=== PATIENT | male | born 1950 | race African-American/Black ===

== ENCOUNTER 2016-08-03 22:09 | Emergency (ER) | payer OTHER ==
[~2016-08-03] VITALS: Ht 185.4 cm; Wt 107.9 kg
--- OUTSIDE RECORDS SUMMARY | 2016-08-03 22:13 | XMS REPORT | Referral Summary ---
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 Name Role Phone [facility] Primary Care Physician Unavailable Encounter [facility] [id number] Date(s): 01/20/16 - 01/20/16 [facility] [address], [place] [address] Discharge Disposition: 01-Home or Self Care Attending Physician: Johnnie Ga MD Admitting Physician: Johnnie Ga MD Vital Signs No data available for this section Problem List Condition Effective Dates Status Health Status Informant Cardiac Active disorder(Confirmed)1 Hypertension(Confirm Active patient ed) Knowledge Active deficit(Confirmed)2 Tissue perfusion Active alteration(Confirmed )3 1Problem added automatically by system based on initiation of Cardiac Output/ Ineffective Cardiac Perfusion Plan of Care 2Problem added automatically by system based on initiation of Knowledge Deficit Plan of Care 3Problem added automatically by system based on initiation of Tissue Perfusion Cerebral Plan of Care Allergies, Adverse Reactions, Alerts No Known Allergies Medications Aldactone 25 mg oral tablet 12.5 mg 0.5 tabs, Oral, Daily, # 15 tabs, 1 Refill(s), Pharmacy: [facility] #[id number], 0.5 tabs Oral Daily,x30 days Start Date: 11/03/15 Stop Date: 01/02/16 Status: Ordered amiodarone 400 mg oral tablet See Instructions, 400 mg bid times one week then decrease to 400 mg daily times one week then 200 mg po daily therafter until seen by Dr. Ga, # 30 caps, 3 Refill(s), please despense for one month Start Date: 11/20/15 Status: Ordered aspirin 81 mg, Oral, Daily, 0 Refill(s) Start Date: 10/12/15 Status: Ordered atorvastatin 40 mg oral tablet See Instructions, TAKE ONE TABLET BY MOUTH DAILY, # 30 tabs, 2 Refill(s), Pharmacy: [facility] #[id number], TAKE ONE TABLET BY MOUTH DAILY Start Date: 12/10/15 Status: Ordered Eliquis 5 mg oral tablet 5 mg 1 tabs, Oral, BID, # 60 tabs, 3 Refill(s), Pharmacy: [facility] # [id number], 1 tabs Oral BID Start Date: 10/17/15 Status: Ordered furosemide 40 mg oral tablet 40 mg 1 tabs, Oral, Daily, # 30 tabs, 1 Refill(s), Pharmacy: [facility] # [id number], 1 tabs Oral Daily Start Date: 11/03/15 Status: Ordered lisinopril 5 mg oral tablet 5 mg 1 tabs, Oral, Daily, # 30 tabs, 3 Refill(s), Pharmacy: [facility] # [id number], 1 tabs Oral Daily Start Date: 10/17/15 Status: Ordered Nicoderm C-Q 14 mg/24 hr transdermal film, extended release 1 patches, Topical, Daily, # 30 patches, 1 Refill(s), Pharmacy: [facility] #[id number] Start Date: 11/13/15 Stop Date: 02/26/16 Status: Ordered omeprazole 20 mg oral delayed release capsule 20 mg 1 caps, Oral, Daily, # 30 caps, 1 Refill(s), Pharmacy: [facility] # [id number], 1 caps Oral Daily Start Date: 11/03/15 Status: Ordered One-A-Day Men 50 Plus 1 tabs, Oral, Daily, 0 Refill(s) Start Date: 10/12/15 Status: Ordered Toprol-XL 50 mg oral tablet, extended release 150 mg 3 tabs, Oral, Daily, # 90 tabs, 3 Refill(s), Pharmacy: [facility] # [id number] Start Date: 10/17/15 Status: Ordered Results No data available for this section Immunizations No data available for this section Procedures Procedure Date Related Diagnosis Body Site Cardioversion with Transesophageal 11/20/15 Echocardiogram1 Catheterization Left Heart with Coronary 10/15/15 Angiography (Right, Wrist)2 Catheterization Right Heart (Right, Upper 10/15/15 Arm)3 Stabbing 1/1/88 Knee arthroplasty 05/09/82 1auto-populated from documented surgical case 2auto-populated from documented surgical case 3auto-populated from documented surgical case Social History Social History Type Response Smoking Status Current every day smoker; Type: Cigarettes; Tobacco use per day: Less than Pack1 13 cigs daily Assessment and Plan No data available for this section
--- OUTSIDE RECORDS SUMMARY | 2016-08-03 22:13 | XMS REPORT | Referral Summary ---
Author Author [facility] Organization [facility] Address Unknown Phone Unavailable Care Team Providers Care Dealer Relationship Manager Name Role Phone [facility] Primary Care Physician Unavailable Encounter [facility] [id number] Date(s): 10/11/15 - 10/17/15 [facility] [address] [place] [address] [phone] Discharge Diagnosis: Dyspnea Discharge Diagnosis: Leg edema Discharge Diagnosis: New onset a-fib Discharge Disposition: 01-Home or Self Care Attending Physician: Lindsay Rice DO Admitting Physician: Hannah Morrison DO Vital Signs Most recent to 1 oldest [Reference Range]: Temperature Oral 36.5 degC [35.8-37.3 degC] (10/17/15 9:42 AM) Temperature Temporal 36.6 degC Artery [36.3-37.8 (10/13/15 3:45 PM) degC] Peripheral Pulse 90 bpm Rate [60-100 bpm] (10/17/15 9:42 AM) Heart Rate Monitored 86 bpm [60-100 bpm] (10/17/15 8:36 AM) Respiratory Rate 16 br/min [14-20 br/min] (10/17/15 9:42 AM) Blood Pressure 135/92 mmHg [90-140/60-90 mmHg] (10/17/15 9:42 AM) Mean Arterial 119 mmHg Pressure, Cuff (10/15/15 8:43 AM) Pulse Rate [60-100 93 bpm bpm] (10/14/15 9:02 PM) SpO2 95 % (10/17/15 9:42 AM) Remote Telemetry Ongoing (10/17/15 10:12 AM) Problem List Condition Effective Dates Status Health [...] Adverse Reactions, Alerts No Known Allergies Medications aspirin 81 mg, Oral, Daily, 0 Refill(s) Start Date: 10/12/15 Status: Ordered Eliquis 5 mg oral tablet 5 mg 1 tabs, Oral, BID, # 60 tabs, 3 Refill(s), Pharmacy: [facility] # [id number], 1 tabs Oral BID Start Date: 10/17/15 Status: Ordered Lasix 20 mg oral tablet 20 mg 1 tabs, Oral, Daily, # 30 tabs, 1 Refill(s), Pharmacy: [facility] # [id number], 1 tabs Oral Daily Start Date: 10/17/15 Status: Ordered Lipitor 40 mg oral tablet 40 mg 1 tabs, Oral, Daily, # 30 tabs, 0 Refill(s), Pharmacy: [facility] # [id number], 1 tabs Oral Daily Start Date: 10/17/15 Status: Ordered lisinopril 5 mg oral tablet 5 mg 1 tabs, Oral, Daily, # 30 tabs, 3 Refill(s), Pharmacy: [facility] # [id number], 1 tabs Oral Daily Start Date: 10/17/15 Status: Ordered One-A-Day Men 50 Plus 1 tabs, Oral, Daily, 0 Refill(s) Start Date: 10/12/15 Status: Ordered Toprol-XL 50 mg oral tablet, extended release 150 mg 3 tabs, Oral, Daily, # 90 tabs, 3 Refill(s), Pharmacy: [facility] # [id number] Start Date: 10/17/15 Status: Ordered Results Hematology Most recent to 1 oldest [Reference Range]: WBC [4.8-10.8 7.0 10*3/uL 10*3/uL] (10/17/15 5:12 AM) RBC [4.60-6.20] 5.23 (10/17/15 5:12 AM) Hgb [14.0-18.0 15.4 gm/dL gm/dL] (10/17/15 5:12 AM) Hct [42.0-52.0 %] 45.6 % (10/17/15 5:12 AM) MCV [82.0-99.0 fL] 87.2 fL (10/17/15 5:12 AM) MCH [27.0-32.0 pg] 29.4 pg (10/17/15 5:12 AM) MCHC [32.0-36.0 33.8 gm/dL gm/dL] (10/17/15 5:12 AM) RDW [11.5-14.5 %] 14.3 % (10/17/15 5:12 AM) Platelet [150-400 165 10*3/uL 10*3/uL] (10/17/15 5:12 AM) MPV [9.4-12.3 fL] 11.0 fL (10/17/15 5:12 AM) Immature 0.0 % Granulocytes (10/17/15:12 AM) [0.0-1.0 %] Neutrophils [51-75 63 % %] (10/17/15 5:12 AM) Lymphocytes [20-46 25 % %] (10/17/15 5:12 AM) Monocytes [4-11 %] 10 % (10/17/15 5:12 AM) Eosinophils [0-4 %] 2 % (10/17/15 5:12 AM) Basophils [0-2 %] 0 % (10/17/15 5:12 AM) Neutro Absolute 4.35 10*3 [1.90-7.00 10*3] (10/17/15 5:12 AM) Lymph Absolute 1.75 10*3 [0.80-3.30 10*3] (10/17/15 5:12 AM) Glascock Absolute 0.72 10*3 [0.30-1.00 10*3] (10/17/15 5:12 AM) Eos Absolute 0.12 10*3 [0.00-0.50 10*3] (10/17/15 5:12 AM) Baso Absolute 0.02 10*3 [0.00-0.20 10*3] (10/17/15 5:12 AM) Nucleated RBC 0.0 /100 WBC Automated [0 /100 (10/17/15 5:12 AM) WBC] Coagulation Most recent to 1 oldest [Reference Range]: INR [0.9-1.2] 1.2 (10/12/15 12:35 AM) Chemistry Most recent to 1 oldest [Reference Range]: Sodium Lvl [136-144 139 mEq/L mEq/L] (10/17/15 5:12 AM) Potassium Lvl 4.0 mEq/L [3.6-5.1 mEq/L] (10/17/15 5:12 AM) Chloride [99-109 107 mEq/L mEq/L] (10/17/15 5:12 AM) CO2 [22-32 mEq/L] 23 mEq/L (10/17/15 5:12 AM) AGAP [3-20] 9 (10/17/15 5:12 AM) BUN [4-20 mg/dL] 20 mg/dL (10/17/15 5:12 AM) Glucose Lvl [70-100 97 mg/dL mg/dL] (10/17/15 5:12 AM) Creatinine Lvl 1.35 mg/dL [0.64-1.27 mg/dL] *HI* (10/17/15 5:12 AM) eGFR [>60] 53 1 *ABN* (10/17/15 5:12 AM) Calcium Lvl 8.8 mg/dL [8.6-10.0 mg/dL] (10/17/15 5:12 AM) Albumin Lvl [3.5-4.8 3.2 gm/dL gm/dL] *LOW* (10/17/15 5:12 AM) Total Protein 6.4 gm/dL [6.1-7.9 gm/dL] (10/12/15 12:35 AM) Globulin [1.9-4.3 3.2 gm/dL gm/dL] (10/12/15 12:35 AM) ALT [17-63 U/L] 38 U/L (10/12/15 12:35 AM) AST [15-41 U/L] 47 U/L *HI* (10/12/15 12:35 AM) Alk Phos [26-104 68 U/L U/L] (10/12/15 12:35 AM) Bili Total [0.2-1.2 0.5 mg/dL 2 mg/dL] (10/12/15 12:35 AM) Magnesium Lvl 2.0 mg/dL [1.8-2.5 mg/dL] (10/17/15 5:12 AM) Phosphorus [2.4-4.7 3.7 mg/dL 3 mg/dL] (10/17/15 5:12 AM) Troponin [<0.06 <0.05 ng/mL ng/mL] (10/12/15 11:57 AM) Chol [0-200 mg/dL] 110 mg/dL (10/12/15 12:35 AM) Trig [0-150 mg/dL] 118 mg/dL (10/12/15 12:35 AM) HDL [>40 mg/dL] 30 mg/dL *ABN* (10/12/15 12:35 AM) LDL [0-100 mg/dL] 56 mg/dL (10/12/15 12:35 AM) VLDL Cholesterol 24 mg/dL [0-30 mg/dL] (10/12/15 12:35 AM) Cardiac Risk 3.7 [0.0-5.7] (10/12/15 12:35 AM) TSH with Reflex Free 2.02 T4 [0.35-5.50] (10/12/15 12:35 AM) 1Result Comment: Multiply eGFR results by 1.21 for race. 2Result Comment: Naproxen, specifically the metabolite O-desmethylnaproxen, may cause spurious elevation in Total Bilirubin levels. 3Result Comment: High dosages of liposomal Amphotericin B (AmBisome) therapy or other drug preparations that use a liposomal envelope to facilitate drug delivery may cause falsely elevated results for phosphorus. Toxicology Most recent to 1 oldest [Reference Range]: Ethanol Lvl Not Detected (10/12/15 12:35 AM) U Amphetamine Scrn Negative (10/12/15 6:38 AM) U Cocaine Scrn Negative (10/12/15 6:38 AM) U Cannab Scrn Negative (10/12/15 6:38 AM) U Opiate Scrn Negative (10/12/15 6:38 AM) U PCP Scrn Negative (10/12/15 6:38 AM) U Benzodiazepine Negative Scrn (10/12/15 6:38 AM) U Barbiturate Scrn Negative (10/12/15 6:38 AM) Methadone Lvl Negative (10/12/15 6:38 AM) Tricyclics Not Detected 1 (10/12/15 6:38 AM) 1Result Comment: Cut-off concentrations: Amphetamines: 1000 ng/mL Cocaine: 300 ng/mL Cannabinoid: 50 ng/mL Opiate: 300 ng/mL Phencyclidine (PCP): 25 ng/mL Benzodiazepine: 200 ng/mL Barbiturate: 200 ng/mL Methadone: 300 ng/mL Tricyclic: 300 ng/mL The urine drug screen assays are qualitative screens. A more specific GC/MS method must be performed to obtain a confirmed analytical result. Unconfirmed screening results must not be used for non-medical purposes(e.g. employment or legal testing) Urinalysis Most recent to 1 oldest [Reference Range]: UA Color Yellow (10/12/15 6:38 AM) UA Appear Clear (10/12/15 6:38 AM) UA pH [5.0-8.0] 5.0 (10/12/15 6:38 AM) UA Leuk Est Negative [Negative] (10/12/15 6:38 AM) UA Nitrite Negative [Negative] (10/12/15 6:38 AM) UA Protein Pos 1+ [Negative] *ABN* (10/12/15 6:38 AM) UA Glucose Negative [Negative] (10/12/15 6:38 AM) UA Ketones Negative [Negative] (10/12/15 6:38 AM) UA Urobilinogen Negative [<1.0] (10/12/15 6:38 AM) UA Bili [Negative] Negative (10/12/15 6:38 AM) UA Blood [Negative] Negative (10/12/15 6:38 AM) UA Spec Grav 1.020 [1.003-1.030] (10/12/15 6:38 AM) Type Clean Catch (10/12/15 6:38 AM) UA WBC [0-4] 0-2 (10/12/15 6:38 AM) UA RBC [0-2] 0-2 (10/12/15 6:38 AM) Epithelial Cells 0-2 (10/12/15 6:38 AM) UA Bacteria None Seen (10/12/15 6:38 AM) UA Mucous Present (10/12/15 6:38 AM) Immunizations No data available for this section Procedures Procedure Date Related Diagnosis Body Site Catheterization Left Heart with Coronary 10/15/15 Angiography (Right, Wrist)1 Catheterization Right Heart (Right, Upper 10/15/15 Arm)2 Stabbing 05/09/87 Knee arthroplasty 05/09/82 1auto-populated from documented surgical case 2auto-populated from documented surgical case Social History Social History Type Response Smoking Status Current every day smoker; Type: Cigarettes; Tobacco use per day: Less than Pack Assessment and Plan No data available for this section
--- OUTSIDE RECORDS SUMMARY | 2016-08-03 22:13 | XMS REPORT | Referral Summary ---
Author Author [facility] Organization [facility] Address Unknown Phone Unavailable Care Team Providers Care Apprentice Jockey Name Role Phone No PCP, States Primary Care Physician [phone] Encounter [facility] Date(s): 11/19/15 - 11/19/15 [facility] [address], [place] [address] Discharge Diagnosis: Chronic atrial fibrillation Discharge Diagnosis: Mild HTN Discharge Diagnosis: Hyperlipidemia Discharge Diagnosis: Cardiomyopathy Discharge Disposition: 01-Home or Self Care Attending Physician: Yenifer Bustos APRN Admitting Physician: Yenifer Bustos APRN Vital Signs Most recent to 1 oldest [Reference Range]: Peripheral Pulse 72 bpm Rate [60-100 bpm] (11/19/15 1:13 PM) Blood Pressure 98/68 mmHg [90-140/60-90 mmHg] (11/19/15 1:13 PM) Problem List Condition Effective Dates Status Health [...] Daily, # 15 tabs, 1 Refill(s), Pharmacy: [facility] #[id number], 0.5 tabs Oral Daily,x30 days Start Date: 11/03/15 Stop Date: 01/02/16 Status: Ordered aspirin 81 mg, Oral, Daily, 0 Refill(s) Start Date: 10/12/15 Status: Ordered atorvastatin 40 mg oral tablet See Instructions, TAKE ONE TABLET BY MOUTH DAILY, # 30 tabs, eRx: [facility] #[id number], TAKE ONE TABLET BY MOUTH DAILY Start Date: 11/12/15 Status: Ordered digoxin 125 mcg (0.125 mg) oral tablet 125 mcg 1 tabs, Oral, Daily, do not start until after maria teresa on 11/20/15, # 30 tabs , 3 Refill(s), Pharmacy: [facility] #[id number], 1 tabs Oral Daily,Instr:do not start until after maria teresa on 11/20/15 Start Date: 11/19/15 Status: Ordered Eliquis 5 mg oral tablet 5 mg 1 tabs, Oral, BID, # 60 tabs, 3 Refill(s), Pharmacy: [facility] # [id number], 1 tabs Oral BID Start Date: 10/17/15 Status: Ordered furosemide 40 mg oral tablet 40 mg 1 tabs, Oral, Daily, # 30 tabs, 1 Refill(s), Pharmacy: [facility] # [id number], 1 tabs Oral Daily Start Date: 11/03/15 Status: Ordered lisinopril 5 mg oral tablet 5 mg 1 tabs, Oral, Daily, # 30 tabs, 3 Refill(s), Pharmacy: [facility] # [id number], 1 tabs Oral Daily Start Date: 10/17/15 Status: Ordered Nicoderm C-Q 14 mg/24 hr transdermal film, extended release 1 patches, Topical, Daily, # 30 patches, 1 Refill(s), Pharmacy: [facility] #[id number] Start Date: 11/13/15 Stop Date: 02/26/16 Status: Ordered omeprazole 20 mg oral delayed release capsule 20 mg 1 caps, Oral, Daily, # 30 caps, 1 Refill(s), Pharmacy: [facility] # [id number], 1 caps Oral Daily Start Date: 11/03/15 Status: Ordered One-A-Day Men 50 Plus 1 tabs, Oral, Daily, 0 Refill(s) Start Date: 10/12/15 Status: Ordered Toprol-XL 50 mg oral tablet, extended release 150 mg 3 tabs, Oral, Daily, # 90 tabs, 3 Refill(s), Pharmacy: [facility] # [id number] Start Date: 10/17/15 Status: Ordered Results No [...] Pack1 13 cigs daily Assessment and Plan Extracted from: Title: Office Visit Note Author: Yenifer Bustos LINING FOLDER Date: 11/19/15 Assessment/Plan 1.Cardiomyopathy continue home beta saida and meme, dig to be added after planned cardioversion tomorrow. Life vest in place. Pt denies any shocks. Planning to recheck echo in 2 months. 2.Chronic atrial fibrillation continue beta saida, Digoxin 0.125 mg po daily to be added after MARIA TERESA with cardioversion tomorrow. 3.Hyperlipidemia continue statin 4.Mild HTN with borderline hypotension, pt asymptomatic, continue current meme and beta blocekr Orders: digoxin, 125 mcg 1 tabs, Oral, Daily, do not start until after maria teresa on 11/20/15, # 30 tabs, 3 Refill(s), [facility] #[id number], 1 tabs Oral Daily,Instr:do not start until after maria teresa on 11/20/15 Request for Cardiovascular Echo Attending physicianNote: I have seen and examined the patient independently. I have reviewed all relevant documentation, labs, and radiological images, I have formulated the problem list and plan of care as documented above by EDER Smallwood. I have made changes to her documentation where appropriate. Physical Exam: General appearance: NAD, conversant. Eyes: anicteric sclerae, no lid-lag. Ears, Nose, Mouth, Throat: Hears well at normal voice level. Neck: Supple, full range of motion Lungs: CTA, with normal respiratory effort and no intercostal retractions CV: S1 S2, IRR , tachycardia Abdomen: Soft, non-tender Extremities: No peripheral edema Musculoskeletal: Steady Gait Skin: Normal temperature, turgor and texture; Psych: Appropriate affect, alert and oriented to person, place and time Discussion: NICM could be tachy induced. [facility] with no significant CAD. He is still tachycardic despite BB therapy, unfortunately , dose of BB is limited by hypotension , he is currently on toprol, lisinopril and Aldactone. I have offered him MARIA TERESA DCCV in an attempt to restore NSR. he is aware of all the potential complications , he is also aware that there is a high chance of going back to afib even if we were successful in restring NSR. he is willing to attempt. continue AC with eliquis. Will use amiodatone in attempt to maintain NSR after DCCV. he will need repeat echo in 2 months, if EF < 35 %, will consider ICD.
--- OUTSIDE RECORDS SUMMARY | 2016-08-03 22:13 | XMS REPORT | Referral Summary ---
Author Author [facility] Organization [facility] Address Unknown Phone Unavailable Care Team Providers Care Business Info Consultant Name Role Phone [facility] Primary Care Physician Unavailable Encounter [facility] [id number] Date(s): 02/18/16 - 02/18/16 [facility] [address], [place] [address] Discharge Diagnosis: Benign essential HTN Discharge Diagnosis: Non-ischemic cardiomyopathy Discharge Diagnosis: Atrial fibrillation, persistent Discharge Diagnosis: Hyperlipidemia Discharge Disposition: 01-Home or Self Care Attending Physician: Yenifer Bustos APRN Admitting Physician: Yenifer Bustos APRN Vital Signs Most recent to 1 oldest [Reference Range]: Peripheral Pulse 49 bpm Rate [60-100 bpm] *LOW* (02/18/16 12:59 PM) Blood Pressure 146/90 mmHg [90-140/60-90 mmHg] *HI* (02/18/16 12:59 PM) Problem List Condition Effective Dates Status Health Status Informant Benign essential Active HTN(Confirmed) Cardiac Active disorder(Confirmed)1 Non-ischemic Active cardiomyopathy(Confi rmed) Hypertension(Confirm Active patient ed) Knowledge Active deficit(Confirmed)2 Obesity(Confirmed) Active patient Atrial fibrillation, Active persistent(Confirmed ) Tissue perfusion Active alteration(Confirmed )3 1Problem added automatically by system based on initiation of Cardiac Output/ Ineffective Cardiac Perfusion Plan of Care 2Problem added automatically by system based on initiation of Knowledge Deficit Plan of Care 3Problem added automatically by system based on initiation of Tissue Perfusion Cerebral Plan of Care Allergies, Adverse Reactions, Alerts No Known Allergies Medications atorvastatin 40 mg oral tablet See Instructions, TAKE ONE TABLET BY MOUTH DAILY, # 30 tabs, 2 Refill(s), Pharmacy: [facility] #[id number], TAKE ONE TABLET BY MOUTH DAILY Start Date: 12/10/15 Status: Ordered Eliquis 5 mg oral tablet 5 mg 1 tabs, Oral, BID, # 60 tabs, 0 Refill(s), Pharmacy: [facility] # [id number], 1 tabs Oral BID Start Date: 02/11/16 Status: Ordered furosemide 40 mg oral tablet 40 mg 1 tabs, Oral, Daily, # 30 tabs, 1 Refill(s), Pharmacy: [facility] # [id number], 1 tabs Oral Daily Start Date: 11/03/15 Status: Ordered lisinopril 5 mg oral tablet 5 mg 1 tabs, Oral, Daily, # 30 tabs, 0 Refill(s), Pharmacy: [facility] # [id number], 1 tabs Oral Daily Start Date: 02/02/16 Status: Ordered Norvasc 5 mg oral tablet 5 mg 1 tabs, Oral, Daily, # 30 tabs, 3 Refill(s) Start Date: 02/18/16 Status: Ordered One-A-Day Men 50 Plus 1 tabs, Oral, Daily, 0 Refill(s) Start Date: 10/12/15 Status: Ordered Toprol-XL 50 mg oral tablet, extended release 100 mg 2 tabs, Oral, Daily, # 120 tabs, 3 Refill(s) Start Date: 02/18/16 Stop Date: 10/15/16 Status: Ordered Results No data available for this section Immunizations No data available for this section Procedures Procedure Date Related Diagnosis Body Site Cardioversion with Transesophageal 11/20/15 Echocardiogram1 Catheterization Left Heart with Coronary 10/15/15 Angiography (Right, Wrist)2 Catheterization Right Heart (Right, Upper 10/15/15 Arm)3 Stabbing 05/09/87 Knee arthroplasty 05/09/82 1auto-populated from documented surgical case 2auto-populated from documented surgical case 3auto-populated from documented surgical case Social History Social History Type Response Smoking Status Current every day smoker; Type: Cigarettes; Tobacco use per day: Less than Pack1 13 cigs daily Assessment and Plan Extracted from: Title: [facility] office Author: Yenifer Bustos APRN Date: note Assessment/Plan 1. Non-ischemic cardiomyopathy -left heart cath 10/12/15 without obstructive lesions -decrease home beta saida as pt with bradycardia , continue home meme, and Lasix -check bmp, mg in 2 weeks -Life vest removed as most recent transthoracic echo 01/20/16 showedef of 55 to 60% -encouraged low salt diet and smoking cessation 2. Atrial fibrillation, persistent -s/p TRAVIS with cardioversion 11/20/15 -s/p Amiodarone -12 lead EKG in office today 02/18/16 showed sinus bradycardia heart rate 49 -continue Eliquis for primary stroke prevention, samples given to pt and working on Mat program 3. Benign essential HTN sbp 140's, adding Norvasc 5 mg po daily as we are decreasing Toprol to 100 mg daily from 150 mg daily due to bradycardia -we cannot go up on lisinopril given renal insuff/ckd stage IV 4. Hyperlipidemia continue statin 10/12/15 fasting lipid profile acceptable, cholesterol 110, triglycerides 118, hdl 30, and ldl 56 Attending physicianNote: I have seen and examined the patient independently. I have reviewed all relevant documentation, labs, and radiological images, and discussed the case withprimary teamwhen deemed necessary. I have formulated the problem list and [...] effort and no intercostal retractions CV: S1 S2 Abdomen: Soft, non-tender Extremities: No peripheral edema Musculoskeletal: Steady Gait Skin: Normal temperature, turgor and texture; Psych: Appropriate affect, alert and oriented to person, place and time Discussion: EKG with sinus bradycardia today, his EF has recovered, he feels very well, no symptoms , continue to try to quit smoking. will decrease Toprol due to bradycardia, will add Norvasc for better BP control , I counseled him about the need to continue eilquis for primary stroke prevention, samples were provided.
--- OUTSIDE RECORDS SUMMARY | 2016-08-03 22:13 | XMS REPORT | Referral Summary ---
Author Author [facility] Organization [facility] Address Unknown Phone Unavailable Care Team Providers Care Gate Guard Name Role Phone [facility] Primary Care Physician Unavailable Encounter VC MONSIVAIS [id number] Date(s): 11/20/15 - 11/20/15 [facility] [address] [place] [address] Discharge Disposition: 01-Home or Self Care Attending Physician: Johnnie Ga MD Admitting Physician: Johnnie Ga MD Vital Signs Most recent to 1 oldest [Reference Range]: Temperature Oral 36.6 degC [35.8-37.3 degC] (11/20/15 12:00 PM) Temperature Skin 35.8 degC [36-37 degC] *LOW* (11/20/15 7:00 AM) Peripheral Pulse 70 bpm Rate [60-100 bpm] (11/20/15 12:00 PM) Heart Rate Monitored 68 bpm [60-100 bpm] (11/20/15 10:33 AM) Respiratory Rate 18 br/min [14-20 br/min] (11/20/15 12:00 PM) Blood Pressure 114/70 mmHg [90-140/60-90 mmHg] (11/20/15 12:00 PM) SpO2 99 % (11/20/15 12:00 PM) Problem List Condition Effective Dates Status [...] Daily, # 15 tabs, 1 Refill(s), Pharmacy: [facility] #[id number], 0.5 tabs Oral Daily,x30 days Start Date: [...] BY MOUTH DAILY, # 30 tabs, eRx: [facility] #[id number], TAKE ONE TABLET BY MOUTH DAILY Start Date: 11/12/15 Status: Ordered Eliquis 5 mg oral tablet 5 mg 1 tabs, Oral, BID, # 60 tabs, 3 Refill(s), Pharmacy: [facility] # [id number], 1 tabs Oral BID Start Date: 10/17/15 Status: Ordered furosemide 40 mg oral tablet 40 mg 1 tabs, Oral, Daily, # 30 tabs, 1 Refill(s), Pharmacy: [facility] # [id number], 1 tabs Oral Daily Start Date: 11/03/15 Status: Ordered lisinopril 5 mg oral tablet 5 mg 1 tabs, Oral, Daily, # 30 tabs, 3 Refill(s), Pharmacy: [facility] # [id number], 1 tabs Oral Daily Start Date: 10/17/15 Status: Ordered Nicoderm C-Q 14 mg/24 hr transdermal film, extended release 1 patches, Topical, Daily, # 30 patches, 1 Refill(s), Pharmacy: [facility] #[id number] Start Date: 11/13/15 Stop Date: 02/26/16 Status: Ordered omeprazole 20 mg oral delayed release capsule 20 mg 1 caps, Oral, Daily, # 30 caps, 1 Refill(s), Pharmacy: [facility] # [id number], 1 caps Oral Daily Start Date: 11/03/15 Status: Ordered One-A-Day Men 50 Plus 1 tabs, Oral, Daily, 0 Refill(s) Start Date: 10/12/15 Status: Ordered Toprol-XL 50 mg oral tablet, extended release 150 mg 3 tabs, Oral, Daily, # 90 tabs, 3 Refill(s), Pharmacy: [facility] # [id number] Start Date: 10/17/15 Status: Ordered Results No [...]
--- OUTSIDE RECORDS SUMMARY | 2016-08-03 22:13 | XMS REPORT | Continuity of Care Document ---
Demographics Preferred Language Unknown Marital Status Unknown Moravian Affiliation Unknown Race Unknown Ethnic Group Unknown Author Author [facility] Organization [facility] Address Unknown Phone Unavailable Allergies Active Description Code Type Severity Reaction Onset Reported/Identified Relationship to Patient Clinical Status Yes No Known Allergies NKMA N/A N/A 10/11/2015 Medications Medication Packaging Start Date Stop Date Route Dosage Sig ondansetron(Zofran) 2 mL 10/11/2015 10/12/2015 IV Push 4 mg 4 mg= 2 mL, IV Push, q30min, PRN: Nausea or Vomiting acetaminophen(acetaminophen) 2 tabs 10/11/2015 10/12/2015 Oral 1,000 mg 1,000 mg=2 tabs, Oral, Once, PRN: Headache aspirin(aspirin) 4 tabs 10/11/2015 10/12/2015 Oral 324 mg 324 mg=4 tabs, Oral, Once, PRN: Other (See Comment) lisinopril-hydrochlorothiazide(lisinopril- hydrochlorothiazide 20 mg-12.5 mg oral tablet) 1 tabs 10/12/2015 10/17/2015 Oral 1 tabs, Oral, Daily, 0 Refill(s) aspirin(aspirin) 10/12/2015 Oral 81 mg 81 mg, Oral, Daily, 0 Refill(s) acetaminophen(acetaminophen) 2 tabs 10/12/2015 10/17/2015 Oral 1,000 mg 1,000 mg=2 tabs, Oral, q6hr, PRN: Pain Mild (1-3) HYDROcodone-acetaminophen([place] 5 mg-325 mg oral tablet) 1 tabs 10/12/2015 10/17/2015 Oral 1 tabs, Oral, q4hr, PRN: Pain Moderate (4-6) docusate(Colace) 1 caps 10/12/2015 10/17/2015 Oral 100 mg 100 mg=1 caps, Oral, BID, PRN: Constipation nalOXone(Narcan) 1 mL 10/12/2015 10/17/2015 IV Push 0.4 mg 0.4 mg= 1 mL, IV Push, Daily, PRN: Opiate Reversal ondansetron(Zofran) 2 mL 10/12/2015 10/17/2015 IV Push 4 mg 4 mg= 2 mL, IV Push, q6hr, PRN: Nausea HYDROmorphone(HYDROmorphone) 0.2 mL 10/12/2015 10/13/2015 IV Push 0.2 mg 0.2 mg=0.2 mL, IV Push, q2hr, PRN: Pain - Breakthrough polyethylene glycol 3350(MiraLax) 1 packets 10/12/20152015 Oral 17 g 17 g=1 packets, Oral, BID, PRN: Constipation heparin(heparin) 1 mL 10/12/2015 10/12/2015 SubCutaneous 5,000 units 5,000 units=1 mL, SubCutaneous, q8hr (scheduled) zolpidem(Ambien) 1 tabs 10/12/2015 10/13/2015 Oral 5 mg 5 mg=1 tabs, Oral, Bedtime (once a day), PRN: Sleep nicotine(nicotine 14 mg/24 hr transdermal film, extended release) 1 patches 10/1110/17/2015 TransDermal 1 patches, TransDermal, Daily, PRN: Smoking Cessation nitroglycerin(nitroglycerin 0.4 mg sublingual tablet) 1 tabs 10/12/2015 10/17/2015 SubLingual 0.4 mg 0.4 mg=1 tabs, SubLingual, q5min, PRN: Angina/Chest Pain ipratropium(ipratropium 500 mcg/2.5 mL inhalation solution ) 2.5 mL 10/12/2015 10/17/2015 NEB 0.5 mg 0.5 mg=2.5 mL, NEB, q2hr (scheduled), PRN: Other (See Comment) albuterol(albuterol 5 mg/mL (0.5%) inhalation solution) 0.5 mL 10/12/2015 10/17/2015 NEB 2.5 mg 2.5 mg=0.5 mL, NEB, q2hr (scheduled), PRN: Other (See Comment) diltiazem(Cardizem) 1.5 tabs 10/12/2015 10/16/2015 Oral 45 mg 45 mg=1.5 tabs, Oral, q6hr (scheduled) metoprolol(metoprolol tartrate 25 mg oral tablet) 1 tabs 10/12/2015 10/13/2015 Oral 25 mg 25 mg=1 tabs, Oral, BID enoxaparin(Lovenox) 1 mL 10/12/2015 10/13/2015 SubCutaneous 100 mg Voided With Res potassium chloride(potassium chloride 20 mEq oral tablet, extended release) 2 tabs 10/13/2015 10/13/2015 Oral 40 mEq 40 mEq=2 tabs, Oral, Once enoxaparin(Lovenox) 1 mL 10/13/2015 10/14/2015 SubCutaneous 100 mg 100 mg=1 mL, SubCutaneous, q12hr furosemide(Lasix) 4 mL 10/13/2015 10/13/2015 IV Push 40 mg 40 mg =4 mL, IV Push, Once atorvastatin(Lipitor) 1 tabs 10/14/2015 10/17/2015 Oral 40 mg 40 mg=1 tabs, Oral, Daily Sodium Chloride 0.9%(sodium chloride 0.9% 1,000 mL) 1,000 mL 10/14/2015 10/14/2015 IV 20 mL/hr, IV Sodium Chloride 0.9%(sodium chloride 0.9% 1000 mL) 1,000 mL 10/14/2015 10/15/2015 IV 75 mL/hr, IV potassium chloride(potassium chloride 20 mEq oral tablet, extended release) 2 tabs 10/14/2015 10/14/2015 Oral 40 mEq 40 mEq=2 tabs, Oral, Once apixaban(Eliquis) 1 tabs 10/16/2015 10/17/2015 Oral 5 mg 5 mg=1 tabs, Oral, BID lisinopril(lisinopril) 1 tabs 10/17/2015 10/17/2015 Oral 5 mg 5 mg=1 tabs, Oral, Daily metoprolol(Toprol-XL 50 mg oral tablet, extended release) 3 tabs 10/17/2015 Oral 150 mg 150 mg=3 tabs, Oral, Daily, 90 tabs, 3 Refill(s) lisinopril(lisinopril 5 mg oral tablet) 1 tabs 10/17/2015 Oral 5 mg 5 mg=1 tabs, Oral, Daily, 30 tabs, 3 Refill(s) furosemide(Lasix 20 mg oral tablet) 1 tabs 10/17/20152015 Oral 20 mg 20 mg=1 tabs, Oral, Daily, 30 tabs, 1 Refill(s) apixaban(Eliquis 5 mg oral tablet) 1 tabs 10/17/2015 Oral 5 mg 5 mg=1 tabs, Oral, BID, 60 tabs, 3 Refill(s) atorvastatin(Lipitor 40 mg oral tablet) 1 tabs 10/17/201511/11 Oral 40 mg 40 mg=1 tabs, Oral, Daily, 30 tabs, 0 Refill(s) nicotine(Nicoderm C-Q 7 mg/24 hr transdermal film, extended release) 1 patches 11/03/2015 11/13/2015 Topical 1 patches, Topical, Daily , 30 patches, 0 Refill(s) furosemide(furosemide 40 mg oral tablet) 1 tabs 11/03/2015 Oral 40 mg 40 mg=1 tabs, Oral, Daily, 30 tabs, 1 Refill(s) spironolactone(Aldactone 25 mg oral tablet) 0.5 tabs 11/03/2015 01/02/2016 Oral 12.5 mg 12.5 mg=0.5 tabs, Oral, Daily, for 30 days, 15 tabs, 1 Refill(s) omeprazole(omeprazole 20 mg oral delayed release capsule) 1 caps 11/03/2015 Oral 20 mg 20 mg=1 caps, Oral, Daily, 30 caps, 1 Refill(s) atorvastatin(atorvastatin 40 mg oral tablet) 11/12/201512/09 See Instructions, TAKE ONE TABLET BY MOUTH DAILY, 30 tabs digoxin(digoxin 125 mcg (0.125 mg) oral tablet) 1 tabs 11/19/2015 11/20/2015 Oral 125 mcg 125 mcg=1 tabs, Oral, Daily, do not start until after maria teresa on 11/20/15, 30 tabs, 3 Refill(s) amiodarone(amiodarone) 3 mL 11/20/2015 11/20/2015 IV Piggyback 150 mg 150 mg=3 mL, 618 mL/hr, IV Piggyback, Once benzocaine-tetracaine topical(Cetacaine mucous membrane aerosol) 1 sprays 201511/20/2015 Oral 1 sprays, Oral, q3min, PRN: Other (See Comment) midazolam(Versed) 2 mL 11/20/2015 11/20/2015 IV Push 2 mg 2 mg= 2 mL, IV Push, q3min, PRN: Sedation fentaNYL(Sublimaze) 1 mL 11/20/2015 11/20/2015 IV Push 50 mcg 50 mcg=1 mL, IV Push, q3min, PRN: Sedation amiodarone(amiodarone 400 mg oral tablet) 11/20/2015 See Instructions, 400 mg bid times one week then decrease to 400 mg daily times one week then 200 mg po daily therafter until seen by Dr. Ga, 30 caps, 3 Refill( s) Problems Date Dx Coded Attending Type Code Diagnosis Diagnosed By 10/21/2015 Krystal,Lindsay Final E87.6 Hypokalemia 10/21/2015 Krystal,Lindsay Final F17.210 Nicotine dependence, cigarettes, uncomplicated 10/21/2015 Krystal,Lindsay Final I12.9 Hypertensive chronic kidney disease with stage 1 through stage 4 chronic ki 10/21/2015 Krystal,Lindsay Final I27.2 Other secondary pulmonary hypertension 10/21/2015 Krystal,Lindsay Final I42.9 Cardiomyopathy, unspecified 10/21/2015 Krystal,Lindsay Final I48.91 Unspecified atrial fibrillation 10/21/2015 Krystal,Lindsay Final I50.21 Acute systolic (congestive) heart failure 10/21/2015 Krystal,Lindsay Final N17.9 Acute kidney failure, unspecified 10/21/2015 Krystal,Lindsay Final N18.9 Chronic kidney disease, unspecified 10/21/2015 Krystal,Lindsay Final 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 10/21/2015 Krystal,Lindsay Final R07.89 Other chest pain 10/29/2015 Ortega Kira Reason I50.20 Unspecified systolic (congestive) heart failure 11/18/2015 EVAN ALVARADO I50.9 HEART FAILURE, UNSPECIFIED 11/18/2015 EVAN ALVARADO Z00.01 ENCOUNTER FOR GENERAL ADULT MEDICAL EXAM W ABNORMAL FINDINGS 11/26/2015 Johnnie Ga E78.5 Hyperlipidemia, unspecified 11/26/2015 Johnnie Ga Final F17.210 Nicotine dependence, cigarettes, uncomplicated 11/26/2015 Johnnie Ga Final I10 Essential (primary) hypertension 11/26/2015 Johnnie Ga I34.0 Nonrheumatic mitral (valve) insufficiency 11/26/2015 Harmeet, Johnnie Final I42.0 Dilated cardiomyopathy 11/26/2015 Johnnie Ga Reason I48.2 Chronic atrial fibrillation 11/26/2015 Johnnie Ga Final Z79.01 technician terminal and repeater (current) use of anticoagulants 11/26/2015 Johnnie Ga Final Z79.82 technician terminal and repeater (current) use of aspirin 11/26/2015 Johnnie Ga Final Z79.899 Other oil 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 Visit Date/Time Discharge Status Pt. Type Provider Facility Loc./Unit Complaint [id number] 10/10/2015 13:34:00 Document Registration
--- NOTE | 2016-08-03 22:28 | NUR ---
STATUS NURSE IN LOBBY TO BRING PT BACK TO DEPARTMENT FOR ROOM PLACEMENT, RN TRANSPLANT DESK STAFF REPORT THAT THE PT HAS GONE OUTSIDE.
--- OUTSIDE RECORDS SUMMARY | 2016-08-03 22:28 | XMS REPORT | Continuity of Care Document ---
Demographics Preferred Language Unknown Marital Status Unknown Samaritan Affiliation Unknown Race Unknown Ethnic Group Unknown Author Author [facility] Organization [facility] Address Unknown Phone Unavailable Allergies Active Description [...] tabs, Oral, q6hr, PRN: Pain Mild (1-3) HYDROcodone-acetaminophen([place] 5 mg-325 mg oral tablet) 1 tabs [...] 10/21/2015 Krystal,Lindsay Final I42.9 Cardiomyopathy, unspecified 10/21/2015 Krystal,Lnidsay Final I48.91 Unspecified atrial fibrillation 10/21/2015 Krystal,Lindsay [...] atrial fibrillation 11/26/2015 Johnnie Ga Final Z79.01 sewer connector (current) use of anticoagulants 11/26/2015 Johnnie Ga Final Z79.82 sewer connector (current) use of aspirin 11/26/2015 Johnnie Ga Final Z79.899 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 Visit Date/Time Discharge Status Pt. Type Provider Facility Loc./Unit Complaint [id number] 10/10/2015 13:34:00 Document Registration
[2016-08-03 22:38] VITALS: Ht 185.4 cm; Wt 107.9 kg
--- NOTE | 2016-08-03 22:53 | NUR ---
XR PT LEAVES VIA WHEELCHAIR WITH IMAGING STAFF.
--- NOTE | 2016-08-03 23:00 | NUR ---
RETURN PT RETURNS TO ROOM AT THIS TIME.
--- NOTE | 2016-08-03 23:03 | NUR ---
DEPART PT IS DISCHARGED AT THIS TIME, INSTRUCTIONS ARE REVIEWED AND UNDERSTANDING IS VOICED. PT LEAVES AMBULATORY. Addendum: 08/04/16 at 0101 by [email or web address] CORRECTED TIME [id number]
[2016-08-03] MEDS ORDERED: UNK CHOLESTEROL MED PO (23:11)
[2016-08-03] MEDS ORDERED: LISINOPRIL PO (23:11)
[2016-08-03] MEDS ORDERED: METOPROLOL PO (23:11)
[2016-08-03] MEDS ORDERED: APIX5TAB PO (23:11)
[2016-08-03] MEDS ORDERED: HYDRALAZINE PO (23:11)
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
[2016-08-03] MEDS ORDERED: HYDROCODONE/APAP 5/325 (PrePack) SENT HOME ONE (23:15)
[2016-08-03 23:23] VITALS: BP 134/76; PULSE 68; RESP 16; TEMP 98.2; O2SAT 98
--- NOTE | 2016-08-04 07:54 | DI ---
Indication: ITS.REASON: left clavicle pain PROCEDURE: CLAVICLE LEFT: Encounter: Initial Comparison: None Findings: There is no acute fracture, dislocation or malalignment identified. Mild to moderate degenerative change in the glenohumeral joint. Impression: No acute osseous abnormality. .
== END 2016-08-03 23:23 | disposition home or self-care (01) ==
LOC: ED 22:09
DX: S46.912A Strain of unspecified muscle, fascia and tendon at shoulder and upper arm level, left arm, initial encounter (principal); V86.69XA Passenger of other special all-terrain or other off-road motor vehicle injured in nontraffic accident, initial encounter; Y93.89 Activity, other specified; Y92.63 Factory as the place of occurrence of the external cause; Y99.0 Civilian activity done for income or pay